=== PATIENT | male | born 1955 | race Caucasian/White ===

== ENCOUNTER 2016-05-21 10:39 | Emergency (ER) | payer OTHER ==
[2016-05-21 10:59] VITALS: BP 124/86
[2016-05-21] MEDS ORDERED: FAMCICLOVIR 500 MG PO ONE (12:04)
[2016-05-21] MEDS ORDERED: ValACYclovir (*) 1 GM TAB PO ONE (12:13)
--- NOTE | 2016-05-21 12:44 | ED ---
Skin Complaint - HPI Summary HPI Summary: Patient presents with 6 days of pain over his right eyebrow that he attributes to a brown recluse spider bite. He sought evaluation at [facility] and was referred to his PCP, whom he saw two days ago. His PCP placed him on steroids, keflex and doxycycline. The patient has not improved, and in fact has worse pain on two new abrasions on his forehead and the top of his head. His main complaint today is that he has an area on the top of his head that is so painful that he couldn't sleep last night. The pain is a burning soreness, and he has swollen lymph nodes behind is right ear and neck. He thought he had swollen left posterior ear lymph swelling but that has resolved. He denies fever , chills, N/V/D. He has had the chicken pox in the past. - History of Current Complaint Chief Complaint: EDRashSkinAbscess Time Seen by Provider: 05/21/16 11:03 Stated Complaint: POSS SPIDER BITE Hx Obtained From: Patient Onset/Duration: Started Days Ago - 6 Skin Exposure Onset/Duration: Days Ago Timing: Constant, Lasting Days - 6 Onset Severity: Moderate Current Severity: Severe Skin Location: Face Character: Redness, Painful Aggravating Symptom(s): Touch Alleviating Symptom(s): Nothing Associated Signs & Symptoms: Tenderness - Allergy/Home Medications Allergies/Adverse Reactions: Allergies Allergy/AdvReac Type Severity Reaction Status Date / Time No Known Allergies Allergy Verified 05/21/16 10:49 PMH/Surg Hx/FS Hx/Imm Hx Cardiovascular History: Reports: Hx Hypertension Infectious Disease History: No Infectious Disease History: Denies: Traveled Outside the [place] in Last 30 Days - Family History Known Family History: Positive: None - Social History Occupation: Employed Full-time Lives: With Family Alcohol Use: Rare Substance Use Type: Reports: None Smoking Status (MU): Light Every Day Tobacco Smoker Cessation Counseling: Patient Advised to Stop Review of Systems Negative: Fever, Chills Negative: Myalgia Positive: Other - 1cm scab on right mid eyebrow, superficial scab on center forehead and scalp Negative: Headache All Other Systems Reviewed And Are Negative: Yes Physical Exam Triage Information Reviewed: Yes Vital Signs On Initial Exam: Initial Vitals Temp Pulse Resp BP Pulse Ox 99.1 F 72 16 124/86 99 05/21/16 10:49 05/21/16 10:49 05/21/16 10:49 05/21/16 10:49 05/21/16 10:49 Vital Signs Reviewed: Yes Appearance: Positive: Well-Appearing, Well-Nourished, Pain Distress Skin: Positive: Warm, Skin Color Reflects Adequate Perfusion, Dry, Soft, Scaly Skin/Lesions - 1cm scab on right mid eyebrow, superficial scab on center forehead and scalp Head/Face: Positive: Normal Head/Face Inspection Eyes: Positive: EOMI, RADHA, Conjunctiva Clear, Other: - mild edema to right eyelid without scleral involvement or vision changes ENT: Positive: Hearing grossly normal Neck: Positive: Supple, Nontender, Enlarged Nodes @ - right post-auricular lymph swelling Respiratory/Lung Sounds: Positive: Breath Sounds Present Cardiovascular: Positive: RRR Musculoskeletal: Positive: Strength/ROM Intact. Negative: Edema Left, Edema Right Neurological: Positive: Sensory/Motor Intact, Alert, Oriented to Person Place, Time, NV Bundle Intact Distally, Normal Gait Psychiatric: Positive: Affect/Mood Appropriate AVPU Assessment: Alert Diagnostics - Vital Signs Vital Signs Temp Pulse Resp BP Pulse Ox 05/21/16 12:25 98.3 F 05/21/16 10:49 99.1 F 72 16 124/86 99 - Laboratory Lab Statement: Any lab studies that have been ordered have been reviewed, and results considered in the medical decision making process. Course/Dx - Differential Diagnoses - Skin Complaint Differential Diagnoses: Abscess, Angioedema, Cellulitis, Erythema Multiforme, Impetigo, Local Allergic Reaction, MRSA, Urticaria, Varicella Zoster - Diagnoses Provider Diagnoses: Shingles - Physician Notifications Discussed Care Of Patient With: Dr. Fierro, emergency department attending. Discharge - Discharge Plan Condition: Stable Disposition: HOME Prescriptions: Famciclovir(NF) [Famvir(NF)] 500 mg PO TID #20 tab Ibuprofen TAB* [Motrin TAB* 600 MG] 600 mg PO Q8H PRN #30 tab PRN Reason: Pain traMADol TAB* [Ultram*] 50 mg PO Q12H PRN #10 tab MDD 2 PRN Reason: Pain Patient Education Materials: Shingles (ED) Additional Instructions: Please take the medication prescribed until it is completely gone. Use the Ibuprofen and Tramadol for pain management as needed. Continue using the cephalexin and steroids prescribed by your primary care provider until it is completely gone as well. Follow-up with your primary care provider in 4-7 days for re-evaluation. Return to the emergency department if your symptoms worsen.
--- NOTE | 2016-07-25 07:41 | ED ---
Torres Edwards Adam, scribed for Terrence Fierro MD on 05/21/16 at 1201 . Progress - Progress Note Progress Note: Requested for consultation by Kelechi Vicente. History and physical as per Kelechi. Physical exam significant for excoriated vesicles over the right forehead. Also the post-auricular lymph node is enlarged. No eye or ear involvement. Recommended anti-virals. Course/Dx - Diagnoses Provider Diagnoses: Shingles The documentation as recorded by the Torres narvaez Adam accurately reflects the service I personally performed and the decisions made by Sri danielson Jerry, MD.
== END 2016-05-21 12:25 | disposition home or self-care (01) ==
LOC: ED 10:39
DX: B02.9 Zoster without complications (principal); F17.210 Nicotine dependence, cigarettes, uncomplicated; R20.2 Paresthesia of skin
CPT/HCPCS: 99282